=== PATIENT | male | born 1995 | race Caucasian/White ===

== ENCOUNTER → 2019-08-22 | Outpatient (REF) | payer BC, MEDICAID, SELFPAY | LOC: M LAB REF 17:20 → EEVIPCON 17:20 | PROVIDERS: ATTEND Physician Assistant Medical | DX: Z20.828 Contact with and (suspected) exposure to other viral communicable diseases (principal); Z11.59 Encounter for screening for other viral diseases ==

== ENCOUNTER 2024-05-14 15:48 | Emergency (ER) | payer SELFPAY ==
[~2024-05-14] VITALS: Ht 177.8 cm; Wt 126.0 kg
[2024-05-14] MEDS ORDERED: AMOX875T2 PO (18:06)
[2024-05-14] MEDS ORDERED: IBUP-1022 PO (18:06)
[2024-05-14] MEDS: IBUPROFEN 800 MG TAB PO ONE (18:54)
[2024-05-14] MEDS: AUGMENTIN 875 MG TAB PO ONE (18:54)
[2024-05-14 18:56] VITALS: BP 139/88; TEMP 97.9; O2SAT 100
== END 2024-05-14 19:04 | disposition home or self-care (01) ==
LOC: M ED 15:48
DX: K08.89 Other specified disorders of teeth and supporting structures (principal); Z79.1 Long term (current) use of non-steroidal anti-inflammatories (NSAID); Z79.2 Long term (current) use of antibiotics

== ENCOUNTER 2025-01-20 17:57 | Emergency (ER) | payer BC, SELFPAY ==
[~2025-01-20] VITALS: Ht 177.8 cm; Wt 121.6 kg
[~2025-01-20 17:57] MED LIST: AMOX875T2 PO; IBUP600T42 PO
[2025-01-20 18:33] LABS: BASO # 0.1 10^3/uL (0.0-0.2); BASO % 0.7 % (0.0-1.0); EOS # 0.3 10^3/uL (0.0-0.5); EOS % 4.6 % (0.0-3.0); LYMPH # 1.5 10^3/uL (1.5-5.0); LYMPH % 22.1 % (24.0-44.0); MONO # 0.7 10^3/uL (0.0-0.8); MONO % 10.6 % (2.0-8.0); NEUTROPHILS # 4.2 10^3/uL (1.5-8.5); NEUTROPHILS % 61.7 % (36.0-66.0); PLATELET COUNT, AUTOMATED 304 10^3/uL (150-450)
[2025-01-20] MEDS ORDERED: HYDR-3363 PO (18:55)
[2025-01-20 18:57] LABS: ALT/SGPT 51 U/L (7.0-40); AST/SGOT 29 U/L (<34); CALCIUM LEVEL 9.2 MG/DL (8.5-10.1); CARBON DIOXIDE LEVEL 25 MMOL/L (20-31); CHLORIDE LEVEL 104 MMOL/L (98-107); CK-MB VALUE MASS < 1.0 NG/ML (<3.6); CREATININE FOR GFR 1.05 MG/DL (0.70-1.30); GLOMERULAR FILTRATION RATE > 90.0 (>60); POTASSIUM SERUM 4.1 MMOL/L (3.5-5.1); SODIUM LEVEL 139 MMOL/L (136-145)
[2025-01-20] MEDS ORDERED: PRAZ1CAP (18:57)
[2025-01-20] MEDS ORDERED: TRAZ-252 PO (18:57)
[2025-01-20 19:07] LABS: CPK CREATINE PHOSPHOKINASE 81 U/L (46-171)
[2025-01-20 20:35] LABS: D-DIMER QUANT < 0.27 ug/mL (<0.5); INR 1.10
[2025-01-20 21:22] VITALS: BP 147/70; TEMP 97.5; O2SAT 96
== END 2025-01-20 21:33 | disposition home or self-care (01) ==
LOC: M ED 17:57
DX: R07.89 Other chest pain (principal); R94.31 Abnormal electrocardiogram [ECG] [EKG]; I10 Essential (primary) hypertension; F41.9 Anxiety disorder, unspecified; Z79.899 Other long term (current) drug therapy